=== PATIENT | male | born 1980 | race American Indian/Alaskan Native ===

== ENCOUNTER 2019-02-03 11:38 | Emergency (ER) | payer SELFPAY ==
[2019-02-03 12:09] VITALS: BP 119/73
--- NOTE | 2019-02-03 12:11 | Event Note ---
ED Screening Note Date of service: 02/03/19 Time: 12:08 ED Screening Note: This is a 38 y.o. M. that presents to the ER with abscess to left temporal x 1 week. Reports mild drainage. This initial assessment/diagnostic orders/clinical plan/treatment(s) is/are subject to change based on patients health status, clinical progression and re- assessment by fellow clinical providers in the ED. Further treatment and workup at subsequent clinical providers discretion. Patient/guardian urged not to elope from the ED as their condition may be serious if not clinically assessed and managed. Initial orders include: ACC for further evaluation.
--- NOTE | 2019-02-03 13:56 | Emergency Department Report ---
Abscess Boil HPI - HPI Chief Complaint: Skin/Abscess/Foreign Body Stated Complaint: POSS SPIDER BITE/PAIN ON L SIDE OF FACE Time Seen by Provider: 02/03/19 12:07 Duration: 4 Days Location: Other (left-sided face) Severity: Mild History: Yes Pain, Yes Purulent Drainage, No Fever, No Numbness, No Foreign Body, No Previous History HPI: 38-year-old [place] male presents with department complaining of cystic lesions to his posterior neck region and left face. States that this of the face may be secondary to an insect bite. He is not sure what a 6 cystic growth there to begin to manipulate with his fingers and put warm compresses on which did [id number] some discharge. He was advised common by his job managing the wound with peroxide and an alcohol to the best of hisability Home Medications: Previous Rx's Medication Instructions Recorded Last Taken Type Acetaminophen/Codeine [Tylenol #3] 1 tab PO Q6H PRN #20 tab 09/13/15 Unknown Rx Cyclobenzaprine [Flexeril] 10 mg PO TID PRN #30 tablet 09/13/15 Unknown Rx Ibuprofen [Motrin] 600 mg PO Q8H PRN #50 tablet 09/13/15 Unknown Rx Chlorhexidine Gluconate [Hibiclens] 10 ml TP BID #240 liquid 02/03/19 Unknown Rx Mupirocin [Bactroban 2%] 15 applic TP TID #15 gm 02/03/19 Unknown Rx Sulfamethoxazole/Trimethoprim 1 each PO BID #20 tablet 02/03/19 Unknown Rx [Bactrim DS TAB] Allergies/Adverse Reactions: Allergies Allergy/AdvReac Type Severity Reaction Status Date / Time Penicillins Allergy Unknown Verified 02/03/19 11:45 ED Review of Systems ROS: Stated complaint: POSS SPIDER BITE/PAIN ON L SIDE OF FACE Other details as noted in HPI Comment: All other systems reviewed and negative ED Past Medical Hx - Past Medical History Previous Medical History?: No - Surgical History Past Surgical History?: Yes Additional Surgical History: hernia repair - Social History Smoking Status: Current Every Day Smoker Substance Use Type: None - Medications Home Medications: Home Medications Medication Instructions Recorded Confirmed Last Taken Type Acetaminophen/Codeine [Tylenol #3] 1 tab PO Q6H PRN #20 tab 09/12/16 09/19/15 Unknown Rx Cyclobenzaprine [Flexeril] 10 mg PO TID PRN #30 tablet 09/13/15 09/19/15 Unknown Rx Ibuprofen [Motrin] 600 mg PO Q8H PRN #50 tablet 09/13/15 09/19/15 Unknown Rx Chlorhexidine Gluconate [Hibiclens] 10 ml TP BID #240 liquid 02/03/19 Unknown Rx Mupirocin [Bactroban 2%] 15 applic TP TID #15 gm 02/03/19 Unknown Rx Sulfamethoxazole/Trimethoprim 1 each PO BID #20 tablet 02/03/19 Unknown Rx [Bactrim DS TAB] ED Abscess Boil Physical Exam - Exam General: Vital signs noted. No distress. Alert and acting appropriately. Front/Back of Body, Lg (Color): 1 - Since to this region. Tenderness with palpation. There is some mild purulence discharge from the wound. No lymphadenopathy reported no lymphangitis. Size: 3 cm Exam: Yes Tenderness, Yes Fluctuance, Yes Normal Neurologic Exam, Yes Normal Circulation, No Surrounding Cellulites/Erythema, No Lymphangitis, No Crepitation, No Heart Murmur I & D Note - I & D Note I & D Note: Wound was incised with a 15 scalpel blade to break the scab at the which she was expressing copious amounts of purulent discharge was evacuated. This entirety. The wound was explored. No foreign bodies visualized. Wound was didn't cleaned with saline and dressed with a nonstick bandage. ED Course Vital Signs 02/03/19 12:08 Temperature 98.3 F Pulse Rate 85 Respiratory 16 Rate Blood Pressure 119/73 O2 Sat by Pulse 100 Oximetry Critical care attestation.: If time is entered above; I have spent that time in minutes in the direct care of this critically ill patient, excluding procedure time. ED Disposition Clinical Impression: Inclusion cyst Disposition: DC-01 TO HOME OR SELFCARE Is pt being admited?: No Does the pt Need Aspirin: No Condition: Stable Instructions: Incision and Drainage (ED), Acute Wound Care (ED) Prescriptions: Sulfamethoxazole/Trimethoprim [Bactrim DS TAB] 1 each PO BID #20 tablet Mupirocin [Bactroban 2%] 15 applic TP TID #15 gm Chlorhexidine Gluconate [Hibiclens] 10 ml TP BID #240 liquid Referrals: [facility] [Provider Group] - 2-3 Days (Wound evaluation in 2-3 days)
== END 2019-02-03 14:22 | disposition home or self-care (01) ==
LOC: ED 11:38
DX: L72.0 Epidermal cyst (principal); F17.200 Nicotine dependence, unspecified, uncomplicated; Z88.0 Allergy status to penicillin; Z79.1 Long term (current) use of non-steroidal anti-inflammatories (NSAID); Z79.899 Other long term (current) drug therapy; Z98.890 Other specified postprocedural states